=== PATIENT | male | born 1935 | race Caucasian/White ===

== ENCOUNTER 2025-07-05 12:30 | Inpatient (IN) | payer MEDICARE ==
[2025-07-05 12:55] VITALS: BMI 23.6
[2025-07-05 14:13] LABS: #Basophils 0.08 10x3/uL (0.0-0.2); #Eosinophils 0.09 10x3/uL (0.0-0.7); #Monocytes 0.51 10x3/uL (0.11-0.59); #Neutrophils 7.27 10x3/uL (1.40-6.50); %Basophils 0.9 % (0.0-1.0); %Eosinophils 1.0 % (0.0-10.0); %Lymphocytes 13.5 % (21.0-51.0); %Monocytes 5.5 % (0.0-10.0); %Neutrophils 77.9 % (42.0-75.0); Hematocrit 41.8 % (42.0-52.0); Hemoglobin 13.4 g/dL (14.0-18.0); Mean Corpuscular Hemoglobin 32.4 pg (27.0-31.0); Mean Corpuscular Volume 101.0 fL (78.0-98.0); Platelet Count 202 10x3/uL (130-400); Red Blood Cell (RBC) Count 4.14 mill/uL (4.70-6.10); White Blood Cell (WBC) Count 9.32 10x3/uL (4.8-10.8)
[2025-07-05 14:31] LABS: ALT (SGPT) 42 U/L (Less than 45); AST (SGOT) 36 U/L (11-34); Albumin 4.1 g/dL (3.1-4.5); Alkaline Phosphatase 145 U/L (40-110); Anion Gap 15 mmol/L (10-20); BUN (Urea Nitrogen) 35 mg/dL (8.4-25.7); Bilirubin, Total 0.6 mg/dL (0.3-1.2); Calc. Creatinine Clearance 0 mL/min (70-130); Calcium 9.7 mg/dL (7.8-10.44); Carbon Dioxide 31 mmol/L (23-31); Chloride 102 mmol/L (98-107); Globulin 2.7 g/dL (2.4-3.5); Glucose 138 mg/dL (83-110); INR-International Normal Ratio 1.2; Potassium 5.2 mmol/L (3.5-5.1); Prothrombin Time 15.5 sec (12.0-14.7); Sodium 143 mmol/L (136-145)
[2025-07-05 14:32] LABS: PTT 32.7 sec (22.9-36.1)
[2025-07-11] MEDS ORDERED: Rocuronium Bromide 10 MG/ML (10ML VIAL) ONE (12:36)
[2025-07-11] MEDS ORDERED: Ondansetron PF 4 MG/2 ML Vial ONE (12:36)
[2025-07-11] MEDS ORDERED: Heparin 10,000 UNITS/ 10 ML VIAL ONE (12:42)
[2025-07-11] MEDS ORDERED: CEFAZOLIN 2 GM VIAL ONE (12:43)
[2025-07-11] MEDS ORDERED: Lidocaine 1% PF 5 ML VIAL ONE (14:00)
[2025-07-11] MEDS ORDERED: PHENYLEPHRINE-NS 100 MCG/ML 10 ML SYRINGE ONE (14:00)
[2025-07-11] MEDS ORDERED: PROPOFOL 200 MG/20 ML VIAL ONE (14:00)
[2025-07-11] MEDS ORDERED: SUGAMMADEX SODIUM 200 MG/2 ML VIAL ONE (14:20)
== END 2025-07-11 16:10 | disposition home or self-care (01) | DRG 310 ==
LOC: SURG A 07-11 11:10 → EDSTATUS 07-11 12:30
PROVIDERS: ADMIT Internal Medicine Cardiovascular Disease; ATTEND Internal Medicine Cardiovascular Disease
PROC: 3E03329 Introduction of Other Anti-infective into Peripheral Vein, Percutaneous Approach (ICD-10-PCS; principal; 2025-07-11)
PROC: B24BZZ4 Ultrasonography of Heart with Aorta, Transesophageal (ICD-10-PCS; 2025-07-11)
DX: I48.0 Paroxysmal atrial fibrillation (principal); I49.5 Sick sinus syndrome; Z95.0 Presence of cardiac pacemaker; Z95.1 Presence of aortocoronary bypass graft; E11.9 Type 2 diabetes mellitus without complications; E78.5 Hyperlipidemia, unspecified; Z86.73 Personal history of transient ischemic attack (TIA), and cerebral infarction without residual deficits; Z79.01 Long term (current) use of anticoagulants; Z96.652 Presence of left artificial knee joint; Z98.890 Other specified postprocedural states; Z88.8 Allergy status to other drugs, medicaments and biological substances; Z88.1 Allergy status to other antibiotic agents
CPT/HCPCS: 80053; 85025; 85610; 85730; 86850; 86900; 86901; 93312; J1100; J1644; J2405; J2704; J2720; J3010

== ENCOUNTER 2025-07-05 12:34 | Outpatient (CLI) | payer MEDICARE | END 2025-07-05 12:35 | disposition home or self-care (01) | LOC: LABBT 12:34 | PROVIDERS: ATTEND Internal Medicine Cardiovascular Disease | DX: Z01.810 Encounter for preprocedural cardiovascular examination (principal); I48.0 Paroxysmal atrial fibrillation; Z91.81 History of falling | CPT/HCPCS: 93005; 93010 ==